=== PATIENT | female | born 2000 | race Caucasian/White ===

== ENCOUNTER 2025-06-21 12:20 | Outpatient (CLI) | payer OTHER, SELFPAY ==
[2025-06-21 12:35] VITALS: RESP 13; TEMP 36.8; O2SAT 99
[2025-06-21 12:45] VITALS: BMI 34.7
[2025-06-21 12:57] LABS: ROM Internal Control Test YES-OK TO RESULT pt. (Internal QC)
[2025-06-21 12:58] LABS: ROM Patient Test POSITIVE (Negative)
[2025-06-21 12:59] LABS: Record Kit Lot#, ROM+ K3607
--- NOTE | 2025-06-21 17:54 | OB.TRI.NOTE ---
HPI - General HPI Narrative YANIRA ADLER, is a 25 F who presents [] at 38 weeks presents with SROM at home around 0530 this am. Clear fluid, no vaginal bleeding, and good movement. PFSH PFSH Home Medications Medication Instructions Recorded Last Taken Type vit no.95-ferrous 1 tab PO DAILY 06/21/25 06/20/25 History fumarate 28 mg-folic acid 800 mcg tablet () Allergy/AdvReac Type Severity Reaction Status Date / Time No Known Allergies Allergy Verified 06/21/25 12:45 NST FHR Rate Baby A Baseline: 140 Variability:: Moderate Accelerations:: 15 x 15 Decelerations:: None NST Reactive:: Yes Uterine Activity:: None Assessment & Plan (1) PROM (premature rupture of membranes): (2) 38 weeks gestation of : (3) History of section: (4) Desires (vaginal after ) trial: PLAN: Plan 1) ROM plus positive 2) PROM and no contractions. Discussed active vs expectant management. Reviewed recommendation to start pitocin but patient informed refusal. Declines all interventions and desires to go home and return in 24 hr. Discussed increased risk of infection and recommendation for augmentation. Voiced understanding but informed refusal. To call back this evening with update and will return at 24 hours. Discussed no intercourse, bath, or anything in vagina.To call if vaginal bleeding, contractions, or decreased movement. 3) Reactive NST
== END 2025-06-21 13:55 | disposition home or self-care (01) ==
LOC: WPOUT 12:32 → WP 12:32
PROVIDERS: Referring Provider Advanced Practice Midwife; Visit Provider Advanced Practice Midwife
DX: O42.92 Full-term premature rupture of membranes, unspecified as to length of time between rupture and onset of labor (principal); Z3A.38 38 weeks gestation of pregnancy
CPT/HCPCS: 59025; 59050; 84112; 99221; G0378

== ENCOUNTER 2025-06-22 09:25 | Inpatient (IN) | payer OTHER, SELFPAY ==
[2025-06-22] VITALS (23 sets, daily range): BP systolic 87–138; BP diastolic 52–82; PULSE 69–118; RESP 16; TEMP 36.1–37.2; O2SAT 87–100; BMI 34.7
[2025-06-22] MEDS: Lactated Ringers 1,000 ML 50 ML IV (10:35)
[2025-06-22] MEDS: Oxytocin 15 Units/NS 250ml 15 UNITS/250 ML IV.SOLN IV (10:45)
[2025-06-22 11:00] LABS: Hematocrit 37.5 % (37-47); Hemoglobin 12.0 g/dL (12.0-15.0); Immature Granulocytes Count 0.040 X10^3/uL (0.0-0.0); Mean Corp Hgb Conc 32.0 g/dL (32-36); Mean Corpuscular Volume 81.2 fL (81-99); Mean Platelet Vol. 9.9 fl (6.2-12.0); NRBC Flagged by Analyzer 0 % (0-5); Platelet Count 173 K/mm3 (150-450); RBC Distribution Width CV 15.5 % (11.6-14.6); RBC Distribution Width SD 45.4 fl (35.1-43.9); Red Blood Count 4.62 M/mm3 (4.2-5.4); White Blood Count 9.5 K/mm3 (4.4-11.0)
[2025-06-22 11:36] LABS: Syphilis Antibodies Nonreactive (Nonreactive)
--- NOTE | 2025-06-22 12:55 | PCM.HP.OB ---
HPI - General General Date of Admission: 06/22/25 Date of Service: 06/22/25 Chief Complaint: SROM HPI Narrative YANIRA ADLER, is a 25 F who presents with SROM 06/21/25 5 am. Elected to go home and labor at home against recommendation by provider spinner concrete pipe. Returned today without significant contractions. Clear fluid. Afebrile. 2 cm dilated. Maternal Data Information Final JUAN ANTONIO: [birth year] Gestational age: 38+1 PFSH PFSH Medical History History of pre-term labor Headache Gestational diabetes Home Medications Medication Instructions Recorded Last Taken Type vit no.95-ferrous 1 tab PO DAILY 06/21/25 06/20/25 09:00 History fumarate 28 mg-folic acid 800 mcg 1 TAB tablet () Allergy/AdvReac Type Severity Reaction Status Date / Time No Known Allergies Allergy Verified 06/22/25 10:37 Surgical History History of surgery Social History Smoking Status: Never smoker History 2 Elective abortions Hx Para 1 Spontaneous abortions Hx # Term Pregnancies Ectopic pregnancies Hx # Pregnancies Multiple births 1 # of living children 2 NST FHR Rate Baby A Baseline: 145 Variability:: Moderate Accelerations:: 15 x 15 Decelerations:: None Vital Signs Vital Signs Vital Signs: 06/22/25 10:26 06/22/25 10:26 06/22/25 10:26 Temperature Temperature Source Pulse Rate 94 Respiratory Rate 16 Blood Pressure 125/75 H BP Systolic 125 BP Diastolic 75 Pulse Ox 06/22/25 10:26 06/22/25 10:26 06/22/25 10:26 Temperature 97.3 F L Temperature Source Pulse Rate 95 Respiratory Rate Blood Pressure BP Systolic BP Diastolic Pulse Ox 97 06/22/25 11:31 06/22/25 11:31 06/22/25 12:47 Temperature Temperature Source Temporal Pulse Rate 79 Respiratory Rate Blood Pressure BP Systolic BP Diastolic Pulse Ox 98 06/22/25 12:47 06/22/25 12:47 06/22/25 12:47 Temperature Temperature Source Pulse Rate 82 Respiratory Rate 16 Blood Pressure 110/70 BP Systolic 110 BP Diastolic 70 Pulse Ox 06/22/25 12:47 06/22/25 12:47 Temperature 97.8 F Temperature Source Pulse Rate Respiratory Rate Blood Pressure BP Systolic BP Diastolic Pulse Ox 98 Weight Weight: 89.1 kg Body Mass Index (BMI) 34.7 Labs Labs Labs: Blood Type Pending Antibody Screen Pending Hct, (37-47) 37.5 % Hgb, (12.0-15.0) 12.0 g/dL Syphilis Total Ab, (Nonreactive) Nonreactive Assessment & Plan (1) PROM (premature rupture of membranes): (2) Desires (vaginal after ) trial: (3) 38 weeks gestation of : PLAN: Plan augmentation of labor. Desires unmedicated
[2025-06-22] MEDS: DiphenhydrAMINE 50 MG/ML Syringe IV (23:14)
[2025-06-22] MEDS: Lactated Ringers 1,000 ML 999 ML IV (23:49)
--- NOTE | 2025-06-22 23:57 | PN.OBGYN_ITS ---
Subjective Subjective Pt 9 cm on last exam but with concern for cervical swelling. Very uncomfortable with contractions. Has been using nitrous for pain management. Difficulty tracing HR due to movements of patient. Is now agreeable to an epidural. Pitocin stopped to allow for better monitoring and patient comfort during epidural placement. Objective Data Objective Data Vital Signs: Vital Signs Temp Pulse Resp BP Pulse Ox 97.7 F L 102 H 16 130/82 H 87 06/22/25 22:32 06/22/25 23:56 06/22/25 22:32 06/22/25 23:36 06/22/25 23:56 Weight: 89.1 kg Body Mass Index (BMI) 34.7 Intake & Output: Intake and Output for Last 24 Hours 06/20/25 06/21/25 06/22/25 23:59 23:59 23:59 Intake Total 30.99 / 30.99 Output Total 1400 / 1400 Balance -1369.01 / -1369.01 Lab / Micro Data 06/22/25 10:35 Labs: Laboratory Results - last 24 hr 06/22/25 10:35: WBC 9.5, RBC 4.62, Hgb 12.0, Hct 37.5, MCV 81.2, MCH 26.0 L, MCHC 32.0, RDW Std Deviation 45.4 H, RDW Coeff of [place] 15.5 H, Plt Count 173, MPV 9.9, Immature Gran % (Auto) 0.400, Neut % (Auto) 77.8 H, Lymph % (Auto) 15.6 L, [place] % (Auto) 5.9, Eos % (Auto) 0.1, Baso % (Auto) 0.2, Absolute Neuts (auto) 7.4, Absolute Lymphs (auto) 1.48, Nucleated RBC % 0, Syphilis Total Ab Nonreactive, Blood Type A NEGATIVE, Antibody Screen POSITIVE, Antibody Identification ANTI-D 06/22/25 11:29: POC Glucose 69 L 06/22/25 12:46: POC Glucose 74 06/22/25 16:46: POC Glucose 69 L 06/22/25 20:15: POC Glucose 84 06/22/25 21:28: POC Glucose 93 Assessment & Plan (1) Desires (vaginal after ) trial: (2) 38 weeks gestation of : (3) PROM (premature rupture of membranes): QUALIFIERS: PROM onset of labor timing: onset of labor more than 24 hours following rupture PROM gestational age: full term Qualified Code(s): O42.12 - Full-term premature rupture of membranes, onset of labor more than 24 hours following rupture (4) Prolonged rupture of membranes: PLAN: Plan Epidural requested
[2025-06-23] VITALS (46 sets, daily range): BP systolic 83–138; BP diastolic 47–80; PULSE 71–121; RESP 14–18; TEMP 36.2–37.1; O2SAT 94–100
[2025-06-23] MEDS: fentaNYL-bupivacaine (epidural) 100 ML BAG EPIDURAL ×2 (00:20→04:53)
[2025-06-23] MEDS: Lactated Ringers 1,000 ML 200 ML IV ×2 (00:52→06:11)
[2025-06-23] MEDS: LACTATED RINGERS 500 ML 999 ML IV (02:24)
--- NOTE | 2025-06-23 05:06 | PCM.PN.OB ---
Subjective Subjective Patient now complete and ready to start pushing. Comfortable with an epidural. Objective Data Objective Data Vital Signs: Vital Signs Temp Pulse Resp BP Pulse Ox 98.7 F 77 16 99/57 L 99 06/23/25 04:23 06/23/25 04:35 06/23/25 04:23 06/23/25 04:23 06/23/25 04:35 Weight: 89.1 kg Body Mass Index (BMI) 34.7 Intake & Output: Intake and Output for Last 24 Hours 06/21/25 06/22/25 06/23/25 23:59 23:59 23:59 Intake Total 75.79 / 75.79 2214.70 / 2214.70 Output Total 1400 / 1400 575 / 575 Balance -1324.21 / -1324.21 1639.70 / 1639.70 Lab / Micro Data 06/22/25 10:35 Labs: Laboratory Results - last 24 hr 06/22/25 10:35: WBC 9.5, RBC 4.62, Hgb 12.0, Hct 37.5, MCV 81.2, MCH 26.0 L, MCHC 32.0, RDW Std Deviation 45.4 H, RDW Coeff of [place] 15.5 H, Plt Count 173, MPV 9.9, Immature Gran % (Auto) 0.400, Neut % (Auto) 77.8 H, Lymph % (Auto) 15.6 L, [place] % (Auto) 5.9, Eos % (Auto) 0.1, Baso % (Auto) 0.2, Absolute Neuts (auto) 7.4, Absolute Lymphs (auto) 1.48, Nucleated RBC % 0, Syphilis Total Ab Nonreactive, Blood Type A NEGATIVE, Antibody Screen POSITIVE, Antibody Identification ANTI-D 06/22/25 11:29: POC Glucose 69 L 06/22/25 12:46: POC Glucose 74 06/22/25 16:46: POC Glucose 69 L 06/22/25 20:15: POC Glucose 84 06/22/25 21:28: POC Glucose 93 06/22/25 22:38: POC Glucose 96 06/22/25 23:38: POC Glucose 115 H 06/23/25 00:28: POC Glucose 111 H 06/23/25 01:35: POC Glucose 121 H 06/23/25 02:34: POC Glucose 116 H 06/23/25 03:35: POC Glucose 115 H NST FHR Rate Baby A Baseline: 150 Variability:: Moderate Accelerations:: 15 x 15 Decelerations:: Variable FHR Category:: Category II Uterine Activity:: q 2-3 Assessment & Plan (1) GDM, class A1: (2) Prolonged rupture of membranes: (3) Desires (vaginal after ) trial: (4) 38 weeks gestation of : (5) PROM (premature rupture of membranes): QUALIFIERS: PROM onset of labor timing: onset of labor more than 24 hours following rupture PROM gestational age: full term Qualified Code(s): O42.12 - Full-term premature rupture of membranes, onset of labor more than 24 hours following rupture (6) History of section: PLAN: Plan Begin pushing
[2025-06-23] MEDS: Oxytocin 15 Units/NS 250ml 15 UNITS/250 ML IV.SOLN 999 UNITS IV (06:09)
--- NOTE | 2025-06-23 06:46 | OB.VAGDELI_ITS ---
Assessment & Plan (1) , delivered: (2) Prolonged rupture of membranes: (3) GDM, class A1: (4) History of section: Maternal Data Information Final JUAN ANTONIO: [birth year] Gestational age: 38+2 Vaginal Delivery Maternal Presentation Maternal Presentation: Spontaneous Rupture of Membranes Maternal Presentation: Presented to L&D with ROM >24 hr prior Type of Induction: Pitocin Vaginal Delivery Information Procedure Performed: Spontaneous Vaginal Delivery Surgeon/Practitioner: Lisa Faustin Date of Procedure: 06/23/25 Pre-Procedure Diagnosis: PROM Post-Procedure Diagnosis: Type of anesthesia: Epidural Estimated Blood Loss: 200 cc Time of Delivery: 06:07 Findings Description of procedure: Patient presented to L&D after 24 hours of AROM. 2 cm previous 1 cm at time of ROM. Pitocin augmentation. Epidural placed at 8-9 cm. Patient was able to relax and rest. Progressed to complete and pushed for just under an hour. Delivered the vertex over an intact perineum. There was a loose cord around the neck that was easily reduced. The shoulders delivered easily. The rest of the body was immediately forthcoming. The infant cried upon delivery and was placed on the maternal abdomen. Once the cord stopped pulsating it was clamped and cut. A left labia laceration was repaired with 3-0 Vicryl. There was a small hematoma developing at the introitus. Pressure was held. A small vessel just inside the vagina was briskly bleeding. Pressure was held an the area sutured with a figure of 8 x 2. Tissue was very fragile a the suture tore through another suture was place and pressure applied. A moist surgical lap was placed to hold pressure. A ll sponge , needle and instrument counts were correct. Presentation: Vertex and CHANDANA Amniotic Membrane Rupture Type: Spontaneous Amniotic Fluid Description: Clear Placental Delivery Description: Spontaneous Placenta Disposition: [facility] Specimen collected: No Cord Vessel Description: 3 Vessels Cord Entanglement: Around neck x 1, loose Nuchal Cord Compression: Without compression Infant A Gender: Male Delayed Cord Clamping: Yes Bee Worker talent acquisition partner: No Post Vaginal Deli Medications given after delivery: IV Pitocin Episiotomy Description: None Laceration: None (vaginal just inside introitus. ) Complication Complications: No
[2025-06-23] MEDS: Oxytocin 15 Units/NS 250ml 15 UNITS/250 ML IV.SOLN 83 UNITS IV (07:00)
--- NOTE | 2025-06-23 07:38 | PCM.PN.OB ---
Subjective Subjective Vaginal packing removed. Minimal bleeding. Some edema. Uterus firm. Ice pack applied Objective Data Objective Data Vital Signs: Vital Signs Temp Pulse Resp BP Pulse Ox 98.4 F 106 H 16 120/65 96 06/23/25 07:15 06/23/25 07:30 06/23/25 07:15 06/23/25 07:30 06/23/25 06:43 Weight: 89.1 kg Body Mass Index (BMI) 34.7 Intake & Output: Intake and Output for Last 24 Hours 06/21/25 06/22/25 06/23/25 23:59 23:59 23:59 Intake Total 75.79 / 75.79 3599.13 / 3599.13 Output Total 1400 / 1400 575 / 575 Balance -1324.21 / -1324.21 3024.13 / 3024.13 Lab / Micro Data 06/22/25 10:35 Labs: Laboratory Results - last 24 hr 06/22/25 10:35: WBC 9.5, RBC 4.62, Hgb 12.0, Hct 37.5, MCV 81.2, MCH 26.0 L, MCHC 32.0, RDW Std Deviation 45.4 H, RDW Coeff of [place] 15.5 H, Plt Count 173, MPV 9.9, Immature Gran % (Auto) 0.400, Neut % (Auto) 77.8 H, Lymph % (Auto) 15.6 L, [place] % (Auto) 5.9, Eos % (Auto) 0.1, Baso % (Auto) 0.2, Absolute Neuts (auto) 7.4, Absolute Lymphs (auto) 1.48, Nucleated RBC % 0, Syphilis Total Ab Nonreactive, Blood Type A NEGATIVE, Antibody Screen POSITIVE, Antibody Identification ANTI-D 06/22/25 11:29: POC Glucose 69 L 06/22/25 12:46: POC Glucose 74 06/22/25 16:46: POC Glucose 69 L 06/22/25 20:15: POC Glucose 84 06/22/25 21:28: POC Glucose 93 06/22/25 22:38: POC Glucose 96 06/22/25 23:38: POC Glucose 115 H 06/23/25 00:28: POC Glucose 111 H 06/23/25 01:35: POC Glucose 121 H 06/23/25 02:34: POC Glucose 116 H 06/23/25 03:35: POC Glucose 115 H 06/23/25 04:35: POC Glucose 107 H 06/23/25 05:41: POC Glucose 113 H 06/23/25 06:57: POC Glucose 105 Assessment & Plan (1) , delivered:
[2025-06-24] VITALS: BP 111/75; PULSE 61; RESP 18; TEMP 36.3; O2SAT 98
[2025-06-24 04:00] VITALS: BP 97/63; PULSE 77; RESP 16; TEMP 36.4; O2SAT 97
--- NOTE | 2025-06-24 07:02 | PCM.DC.SUM ---
Providers Date of Admission: 06/22/25 Primary Care Physician: No Primary Care Phys Reason For Visit: LABOR AND DELIVERY/VAGINAL DELIVERY Diagnosis Discharge Diagnosis (1) , delivered: Status: Acute Code(s): O34.219 - Maternal care for unspecified type scar from previous delivery Medications at Discharge Home Medications vit no.95-ferrous fumarate 28 mg-folic acid 800 mcg tablet () 1 tab PO DAILY 06/21/25 acetaminophen 500 mg tablet 1,000 mg (2 x 500 mg) PO Q6H PRN PRN Pain 1-10 Or Fever #0 tabs 06/24/25 ibuprofen 600 mg tablet 600 mg PO Q6H PRN PRN Pain Score 1-10 #0 tabs 06/24/25 sennosides 8.6 mg-docusate sodium 50 mg tablet (Stimulant Laxative Plus) 1 - 2 tab PO DAILY PRN PRN Constipation #0 tabs 06/24/25 Hospital Course Operations None Procedures None Summary of Care Provided Minutes Spent on Discharge: 15 Hospital Course: Patient had vaginal delivery. Hospital course was uneventful. Physical Exam Narrative Patient seen at bedside. Denies pain. Ambulating and voiding without difficulty. Lochia decreased. Desires discharge home today. Const alert and oriented x3 General Appearance: Negative for in distress HEENT normocephalic Eyes General Eye: normal appearance of both eyes Neck General: normal visual inspection Chest Chest: symmetrical chest wall rise Resp normal respiratory effort and normal air movement Effort and Inspection: symmetric chest movement; Negative for tachypneic Auscultation: clear to auscultation bilaterally Cardio regular rate and regular rhythm Peripheral Pulses: pulses 2+ throughout GI normal to inspection, nondistended, normoactive bowel sounds Narrative: Ice to perineum OB / External & Speculum: vaginal bleeding and other Lochia decreasing Uterus Palpation: uterus fundus firm (Below U) Extremity normal to inspection, full ROM and normal capillary refill Skin no rashes or lesions noted Neuro oriented x3, CN's II-XII intact bilaterally and gait normal Psych mental status grossly normal, thought process normal and activity/motor behavior normal Weight / BMI Weight Weight: 196 lb 6.91 oz Body Mass Index (BMI) 34.7 ABG / Lab / Microbiology Data 06/22/25 10:35 Laboratory: Laboratory Results - last 24 hr 06/23/25 06:57: POC Glucose 105 D/C Instructions Discharge Activity: Return to Normal Activity, No Restrictions, May Drive, May Shower and May Take a Tub Bath (Warm water only. No bath salts, soaps, bubbles) May resume sexual activity in: 6-8 weeks Weight Bearing Status: Weight bearing as tolerated Call your doctor if you observe: Fever of 101 or Higher, Inability to urinate, Using more than 1 pad per hour, Shortness of breath, Dizziness, Chest pain, Calf discomfort and Uncontrolled pain DC O2, CPAP, BIPAP Needs Home O2 Discharge instructions: No Please Follow Up With: [facility] When: 2 weeks in office or virtual Meaningful Use Info Meaningful Use Meaningful Use Diagnoses (Choose all that apply): None applicable Discharge Plan Admission Admit Date/Time: 06/22/25 09:25 Primary Reason for Your Visit: Labor and Delivery Attending Provider: Lisa Faustin Primary Care Provider: Care Physician,No Primary Discharge Orders/Prescriptions Prescriptions: New sennosides-docusate sodium [Stimulant Laxative Plus] 8.6-50 mg Tablet 1 - 2 tab PO DAILY PRN PRN (Reason: Constipation) Qty: 0 0RF acetaminophen 500 mg Tablet 1,000 mg PO Q6H PRN PRN (Reason: Pain 1-10 Or Fever) Qty: 0 0RF ibuprofen 600 mg Tablet 600 mg PO Q6H PRN PRN (Reason: Pain Score 1-10) Qty: 0 0RF Continued PNV no.95-ferrous fumarate-FA [] 28 mg iron- 800 mcg tablet 1 tab PO DAILY Referrals / Follow Up: Shireen Duron CNM [Med Staff - Adv Practice Prof, Obstetrics] Care Physician,No Primary [Primary Care Provider, Medical] Disposition Disposition (needs filled in before D/C Order can be placed): Home, Self Care
[2025-06-24 07:54] VITALS: BP 98/63; PULSE 73; RESP 16; TEMP 35.7; O2SAT 98
--- NOTE | 2025-06-28 12:56 | NURSING ---
F/up call attempted, no ans, LVM
== END 2025-06-24 12:09 | disposition home or self-care (01) | DRG 807 ==
PROVIDERS: Admitting Provider Obstetrics & Gynecology; Referring Provider Obstetrics & Gynecology; Visit Provider Obstetrics & Gynecology
DX: O42.12 Full-term premature rupture of membranes, onset of labor more than 24 hours following rupture (principal); Z37.0 Single live birth; O24.420 Gestational diabetes mellitus in childbirth, diet controlled; N89.6 Tight hymenal ring; O34.211 Maternal care for low transverse scar from previous cesarean delivery; O76 Abnormality in fetal heart rate and rhythm complicating labor and delivery; O69.81X0 Labor and delivery complicated by cord around neck, without compression, not applicable or unspecified; O34.63 Maternal care for abnormality of vagina, third trimester; O99.892 Other specified diseases and conditions complicating childbirth; O70.0 First degree perineal laceration during delivery; Z3A.38 38 weeks gestation of pregnancy
CPT/HCPCS: 59025; 59050; 82962; 85025; 86780; 86850; 86870; 86900; 86901; 99221; G0378